=== PATIENT | female | born 1940 | race Caucasian/White ===

== ENCOUNTER 2020-04-07 12:33 | Outpatient (CLI) | payer MEDICARE, SELFPAY ==
--- NOTE | 2020-04-07 12:45 | USCV_ITS ---
Allison Lambert Age: 79 Gender: F : 1940 Exam Date: 04/07/2020 13:03 Ordering Phys: Philip Myers M.D ([email or web address]) Technologist: Catalina Osborne [place] [facility] [place]: ESSENTIAL HYPERTENSION BP: 105 / 75 HR: 90 Rhythm: Sinus Technical Quality: Adequate MEASUREMENTS (Male / Female) Normal Values 2D ECHO LV Diastolic Diameter PLAX 2.6 cm 4.2 - 5.9 / 3.9 - 5.3 cm LV Systolic Diameter PLAX 1.3 cm LV Chamber Size 2.5 cm IVS Diastolic Thickness 1.2 cm 0.6 - 1.0 / 0.6 - 0.9 cm IVS Systolic Thickness 1.3 cm LVPW Diastolic Thickness 2.3 cm 0.6 - 1.0 / 0.6 - 0.9 cm LVPW Systolic Thickness 1.8 cm RV Chamber Size 2.4 cm LVOT Diameter 2.0 cm LV Ejection Fraction 2D Teich 82.0 % LV Ejection Fraction MOD 2C 60.7 % LV Ejection Fraction 2C AL 62.3 % LA Diameter 2.7 cm LA Width 3.0 cm LA Height 3.3 cm RA Width 2.9 cm RA Height 4.3 cm Aorta at Sinotubular Diameter 2.7 cm M-MODE LV Diastolic Diameter MM 4.0 cm 4.2 - 5.9 / 3.9 - 5.3 cm LV Systolic Diameter MM 2.4 cm LV Ejection Fraction MM Teich 72.1 % IVS Diastolic Thickness MM 1.1 cm 0.6 - 1.0 / 0.6 - 0.9 cm IVS Systolic Thickness MM 1.2 cm LVPW Diastolic Thickness MM 0.9 cm 0.6 - 1.0 / 0.6 - 0.9 cm LVPW Systolic Thickness MM 1.1 cm Aortic Annulus Diameter 2.5 cm LA Ao Ratio MM 1.0 MV E Point Septal Separation 0.6 cm DOPPLER AV Peak Velocity 173.0 cm/s LVOT Peak Velocity 121.0 cm/s AV Area Cont Eq vti 1.8 cm squared AV Area Cont Eq pk 2.2 cm squared MV Area PHT 4.5 cm squared Mitral E to A Ratio 3.2 MV E' Velocity 55.5 cm/s Mitral E to MV E' Ratio 6.9 Mitral E to LV E' Lateral Ratio 7.1 Mitral E to LV E' Septal Ratio 6.6 TR Peak Velocity 271.5 cm/s TR Peak Gradient 29.5 mmHg TV Peak E Velocity 38.0 cm/s Right Atrial Pressure 3.0 mmHg Pulmonary Artery Systolic Pressu 32.5 mmHg PV Peak Velocity 52.0 cm/s RV Acceleration Time 0.1 s RV Ejection Time 0.3 s RV AcT/ET 0.4 FINDINGS Left Ventricle Normal left ventricular size. LV function is normal with EF of 60 to 65% and no regional wall motion abnormalities. Diastolic function is abnormal. Right Ventricle The right ventricle is normal in size and function. Right Atrium The right atrium is normal in size. Left Atrium The left atrium is normal in size. Mitral Valve Structurally normal mitral valve without significant stenosis or prolapse. There is no mitral regurgitation. Aortic Valve Not well-visualized. No significant aortic stenosis is seen. There is no aortic regurgitation. Tricuspid Valve Grossly normal without significant stenosis or regurgitation. Inadequate TR jet to calculate RVSP. Pulmonic Valve Not well-visualized. Pericardium Normal pericardium without effusion. Aorta Normal ascending aorta dimension. CONCLUSIONS LV systolic function is normal with EF of 60 to 65%. Diastolic function is abnormal. No significant valvular heart disease is seen. Compared to prior echocardiogram from 07/18/2014, no significant changes are seen. Philip Myers MD (Electronically Signed) Final Date: 16 April 2020 11:57 S
== END 2020-04-07 12:34 | disposition home or self-care (01) ==
PROVIDERS: PCP Family Medicine; Visit Provider Internal Medicine
DX: I10 Essential (primary) hypertension (principal)
CPT/HCPCS: 80048; 83880; 93306

== ENCOUNTER 2020-08-10 17:40 | Emergency (ER) | payer MEDICARE, SELFPAY ==
[2020-08-10 17:58] VITALS: BP 117/70; PULSE 85; RESP 16; TEMP 36.4; O2SAT 92; BMI 28.7
--- NOTE | 2020-08-10 18:06 | XRR_ITS ---
PROCEDURE INFORMATION: Exam: XR Left Wrist Exam date and time: 08/10/2020 6:21 PM Age: 80 years old Clinical indication: Injury or trauma; Fall; Blunt trauma (contusions or hematomas); Injury date: 08/10/2020; Injury details: PT fell today, deformation at wrist joint. PT states she had a crushing injury left wrist x50yrs. ; Prior surgery; Surgery date: 6+ months; Surgery type: Crushing injury left wirst x50yrs TECHNIQUE: Imaging protocol: XR Left wrist. Views: 3 or more views. Total images: 3 COMPARISON: No relevant prior studies available. FINDINGS: Bones/joints: Simple comminuted intra-articular impacted transverse fracture distal left radius. Minimally displaced dorsal intra-articular avulsion fracture without visible step-off. Approximately 42 degrees of volar angulation. Ulnar styloid avulsion fracture. Osteopenia/osteoporosis. Soft tissues: Soft tissue swelling. XR/XR wrist LT min 3V* [id number] IMPRESSION: Distal radius and ulna fractures as detailed in text.
--- NOTE | 2020-08-10 18:06 | XRR_ITS ---
PROCEDURE INFORMATION: Exam: XR Left Elbow Exam date and time: 08/10/2020 6:21 PM Age: 80 years old Clinical indication: Injury or trauma; Fall; Blunt trauma (contusions or hematomas); Elbow; Injury date: 08/10/2020; Injury details: PT fell today, deformation at wrist joint. PT states she had a crushing injury left wrist x50yrs. TECHNIQUE: Imaging protocol: XR Left elbow. Views: 3 or more views. Total images: 3 COMPARISON: No relevant prior studies available. FINDINGS: Bones/joints: No visible acute osseous abnormality, fracture, subluxation, or dislocation. No radiographically visible joint effusion. Osteopenia. Soft tissues: Soft tissues without evidence of edema, swelling, contusion, emphysema, or radiopaque foreign body. XR/XR elbow LT min 3V* [id number] IMPRESSION: Nonacute.
--- NOTE | 2020-08-10 18:06 | W.ED.FALL ---
HPI - Fall General: Chief Complaint: Fall Stated Complaint: FALL/LUE INJURY Time Seen by Provider: 08/10/20 18:04 Source: patient Mode of arrival: ambulatory Limitations: no limitations History of Present Illness: HPI Narrative: 80-year-old female who states that she opened a door to let her dogs out when she did she fell backwards. She states that she slapped her left wrist on the ground and believes she may have fractured her wrist. She has wrist pain she rates a 7 out of 10. She denies any head injury and denies headache or loss of consciousness. Denies any nausea or vomiting. She denies any neck pain. States she has some slight elbow pain. Patient is ambulatory and denies any lower extremity pain. MD complaint: fall Associated symptoms-after fall: Denies abdominal pain, chest pain or headache(s) Review of Systems Const: Denies: fever(s), chills, body aches or change in appetite Eyes: Denies: blurry vision or eye discomfort ENMT: Denies: throat pain or dental pain Card: Denies: chest pain Resp: Denies: dyspnea GI: Denies: abdominal pain, nausea, vomiting or diarrhea : Denies: dysuria Musc: Reports: extremity pain Skin/Breast: Denies: rash Neuro: Denies: headache(s) Psych: Denies: depression Manjinder/Lymph: Denies: easy bruising All/Imm: Denies: urticaria PFSH ED PFSH: Medical History Atrial fibrillation Chronic obstructive pulmonary disease Surgical History History of tubal ligation Family History Father Cancer Son Diabetes Social History Smoking and tobacco status: former smoker Quit status (tobacco): has quit using tobacco Year quit tobacco: 1988 - PD x 20 Years Second hand smoke exposure: Yes Smoking risk assessment/counseling performed?: No Alcohol intake: current Alcohol intake frequency: few times a week Alcohol type: wine Counseling given: No Counseling given: No Lives independently: No Household members: children Housing: Manufactured/Mobile home Marital status: Current occupational status: retired History of recent travel: No Current gender identity: Female Physical Exam Const: COMMON NORMALS: no acute distress, patient oriented x3 and healthy appearing HENMT: COMMON NORMALS: normocephalic and atraumatic HEAD & SCALP: normocephalic and atraumatic Eye: COMMON NORMALS: Equal, round and reactive pupils present and EOMs intact bilaterally PUPIL: Yes Equal, round and reactive pupils present Neck/C-Spine: COMMON NORMALS: full ROM and supple Chest: COMMONS NORMALS: normal inspection of the chest and normal palpation of entire chest wall Resp: COMMON NORMALS: normal respiratory effort, No retractions, No use of accessory muscles and clear to auscultation bilaterally AUSCULTATION: clear to auscultation bilaterally Cardio: COMMON NORMALS: regular rate, regular rhythm and No murmurs present (Cardio) RATE: regular rate RHYTHM: regular rhythm GI: COMMON NORMALS: Normal to inspection, nondistended, normoactive bowel sounds present, Soft to palpation, non-tender and no masses PALPATION: Yes Soft to palpation Extremity: COMMON NORMALS: full ROM NARRATIVE EXTREMITY EXAM: Tenderness to left wrist with obvious deformity distal pulses and sensation are intact. Neuro: COMMON NORMALS: patient oriented x3, moves all extremities and no focal motor deficits Psych: COMMON NORMALS: mental status grossly normal, Normal thought process present and cooperative THOUGHT PROCESS: Normal thought process present Skin: COMMON NORMALS: no rashes or lesions noted and no wounds GENERAL SKIN EXAM: no rashes or lesions noted Course Vital Signs: Vital signs: Vital Signs Temperature 97.6 F 08/10/20 17:58 Pulse Rate 85 08/10/20 17:58 Respiratory Rate 16 08/10/20 17:58 Blood Pressure 117/70 08/10/20 17:58 Pulse Oximetry 92 08/10/20 17:58 MDM - Fall MDM Narrative: Medical decision making narrative: Patient presents here with a wrist fracture from a fall. Patient placed in a sugar tong splint and has good distal sensation pulses after splint placement. Patient is to follow-up with orthopedics. She is return if worsening. She had no head or neck injury. Imaging Data^: xr left elbow: Attestation: I personally reviewed and interpreted this imaging study as follows: My impression: no acute abnormlaity xr l wrist: Attestation: I personally reviewed and interpreted this imaging study as follows: My impression: distal radius and styloid fx Discharge Plan Discharge Patient Disposition: Home Clinical Impression: Fracture of wrist Condition: Stable Prescriptions: New hydrocodone-acetaminophen 5-325 mg tablet 1 tab PO Q6H PRN (Reason: pain) Qty: 14 RF: 0 No Action dextromethorphan polistirex [Delsym 12 hour] 30 mg/5 mL suspension,extended rel 12 hr 10 ml PO Q12H RF: 0 ipratropium-albuterol 0.5 mg-3 mg(2.5 mg base)/3 mL solution for nebulization 3 ml INHALATION Q6H PRN (Reason: wheezing) Qty: 180 RF: 5 (DME) nebulizer supplies See Rx Instructions .Route .MEDSUPPLY Qty: 4 RF: 0 furosemide 20 mg tablet 20 mg PO BID Qty: 120 RF: 2 albuterol sulfate [Ventolin HFA] 90 mcg/actuation HFA aerosol inhaler 2 puff INHALATION QID PRN (Reason: shortness of breath or wheezing) Qty: 18 RF: 5 Stiolto Respimat 2.5-2.5 mcg/actuation mist See Rx Instructions .ROUTE .COMPLEX Qty: 4 RF: 3 metoprolol succinate 50 mg tablet extended release 24 hr 50 mg PO BID RF: 0 Equate Sleeping Medication 1 tab PO BEDTIME PRN (Reason: Sleep) RF: 0 Discharge Orders: Discharge ED (Routine); Ordered 08/10/20 Ordered By: Ashley Bonner Referrals: Zia Navarro DO [Physician] - 1-3 days Yuridia Holguin MD [Primary Care Provider] - Discharge Diet: Advance as tolerated Discharge Activity: Resume usual activity Patient Instructions: Wrist Fracture in Adults (ED), Opioid Safety Coding Level of Care Code ED Manager Camp for Chg Fwd Exam Comprehensive
[2020-08-10] MEDS: HYDROcodone-acetaminophen 5-325 mg Tablet 1 TAB PO (18:29)
[2020-08-10 19:10] VITALS: BP 139/61; PULSE 72; RESP 18; O2SAT 97
--- NOTE | 2020-08-11 09:15 | DCPLANNER ---
clinical applications manager had message to schedule a follow up appointment for patient with ortho for a wrist fracture. clinical applications manager called the ortho clinic, spoke with Evelyn, gave clinic patients information. clinical applications manager was told that patients information would be printed and reviewed. Clinic will call patient with appointment information.
--- NOTE | 2020-08-12 09:02 | DCPLANNER ---
Patient has a follow up appointment scheduled for , August 12, 2020 at 1:[address] Navarro. Clinic will call patient with appointment information.
--- NOTE | 2020-09-27 07:40 | DCPLANNER ---
Patient had a follow up appointment scheduled for 08.12.[address] Navraro at [facility] - patient did attend appointment.
== END 2020-08-10 19:15 | disposition home or self-care (01) ==
PROVIDERS: Emergency Provider Emergency Medicine; PCP Family Medicine
DX: S52.572A Other intraarticular fracture of lower end of left radius, initial encounter for closed fracture (principal); S52.612A Displaced fracture of left ulna styloid process, initial encounter for closed fracture; J44.9 Chronic obstructive pulmonary disease, unspecified; I48.91 Unspecified atrial fibrillation; Z87.891 Personal history of nicotine dependence; W19.XXXA Unspecified fall, initial encounter
CPT/HCPCS: 29125; 73080; 73110; 99283

== ENCOUNTER → 2020-08-12 13:59 | Outpatient (BNVA) | payer MEDICARE, SELFPAY | PROVIDERS: PCP Family Medicine; Visit Provider Orthopaedic Surgery | DX: S62.109A Fracture of unspecified carpal bone, unspecified wrist, initial encounter for closed fracture (principal); Z20.822 Contact with and (suspected) exposure to COVID-19; X58.XXXA Exposure to other specified factors, initial encounter | CPT/HCPCS: 87635 ==

== ENCOUNTER 2020-08-13 14:01 | Observation (INO) | payer MEDICARE, SELFPAY ==
[2020-08-12 17:49] VITALS: BMI 28.3
[2020-08-13] VITALS (13 sets, daily range): BP systolic 96–171; BP diastolic 65–119; PULSE 81–103; RESP 15–22; TEMP 36.4–37.1; O2SAT 93–100
--- NOTE | 2020-08-13 | SCC_ITS ---
Procedure Done: ORIF left distal radius extra articular 8.4 seconds of fluoroscopic guidance, for a cumulative dose of 0.15 mGy, was provided to Dr. Navarro by the radiology department. C-arm images of the left wrist were saved for the patient's permanent record. [facility]
--- NOTE | 2020-08-13 | XR_ITS ---
WS: [id number] Left wrist, C-arm fluoroscopy, 08/13/2020 Clinical Data: orif left wrist Comparison: Left wrist, 08/10/2020. Findings: There is a ventral plate applied to the distal left radius with multiple orthopedic screws reducing t he comminuted distal left radial fracture. The ulnar styloid fracture is seen. XR/XR wrist LT 2V [id number] Impression: Internal fixation of distal left radial fracture.
--- NOTE | 2020-08-13 09:16 | ECG_ITS ---
[facility] ED Test Date: 2020-08-13 Pat Name: Allison Lambert Department: Room: Gender: Female [employer]: : 1940 Requested By: Anuja Lee Order Number: [id number] Mark MD: Rachel Mota M.D. Measurements Intervals [place] Rate: 87 P: CT: QRS: 52 QRSD: 106 T: 53 QT: 363 QTc: 439 Interpretive Statements ATRIAL FIBRILLATION INCOMPLETE RIGHT BUNDLE BRANCH BLOCK [90+ ms QRS DURATION, TERMINAL R IN V1/V2, 40+ ms S IN I/aVL/V4/V5/V6] MODERATE ST DEPRESSION [0.05+ mV ST DEPRESSION] Compared to ECG 07/06/2017 22:13:47 Incomplete right bundle-branch block now present ST (T wave) deviation now present Electronically Signed On 08-16-2020 23:16:21 CDT by Rachel Mota M.D. [id number]
--- NOTE | 2020-08-13 09:32 | ANES.PREANE2 ---
Pre-Anesthetic Assessment Pre-Anesthetic Assessment: Height/Weight: Height 1.52 m Weight 65.771 kg Temp Pulse Resp BP Pulse Ox 98.1 F 103 H 18 140/82 94 08/13/20 09:17 08/13/20 09:17 08/13/20 09:17 08/13/20 09:17 08/13/20 09:17 Preop Diagnosis: left distal radius fracture Proposed Procedure: Operation Date: 08/13/20 11:10 Proposed Procedures p ORIF Wrist S62.109A [id number](Not Applicable) - Zia Navarro DO Familial anesthetic complications: none Was Beta Fay taken within 24 hours: Yes Was Clonidine taken within 24 hours: N/A Last intake: Intake Last Liquid Date 08/12/20 Last Liquid Time 23:00 Last Solid Date 08/12/20 Last Solid Time 23:00 Social: Social History: No alcohol and No tobacco Comment: former smoker Exam: Pre-Anes Outpt Exam: alert, oriented x 3, clear to auscultation bilaterally and regular rate & rhythm Airway: Cervical ROM: WNL MP: 2 Dentition: Other (no teeth) Pulmonary: Pulmonary: COPD (multiple exacerbations requiring antibiotics and prednisone) Comments: 2015 patient arrrived by ambulance w/ shortness of breath, became acutely difficult to ventilate (required high airway pressures) and she coded for a short period of time. Subsequent chest cxr revealed b/l pneumothroaces. Unclear if caused by CPR or if they occurred spontanesouly causing the code. After stabilzation cardiac work up was negative despite EKG changes and troponin rise. CV/HEM: CV/HEM: Afib and HTN Comments: Patient has poorly controlled a fib, seen by adali last in may. She refuses any anticoagulation. Her metoprolol has been increased twice since march. 05/23 echo normal, stress test in 2014 negative for ischemia Anesthetic Plan: ASA status: 4 Anesthesia: General and Regional (specify below) Other: will avoid postivie pressure ventilation Risk of > 500 ml blood loss (7ml/kg in children): No PFSH Anesthesia PFSH: Medical History Atrial fibrillation Chronic obstructive pulmonary disease Surgical History History of tubal ligation Family History Father Cancer Son Diabetes Social History Smoking and tobacco status: former smoker Quit status (tobacco): has quit using tobacco Year quit tobacco: 1988 - 1PPD x 20 Years Second hand smoke exposure: Yes Smoking risk assessment/counseling performed?: No Alcohol intake: current Alcohol intake frequency: few times a week Alcohol type: wine Counseling given: No Counseling given: No Lives independently: No Household members: children Housing: [employer]/Mobile home Marital status: Current occupational status: retired History of recent travel: No Current gender identity: Female Data Anesthesia Cardiac Studies: No Data to Display
--- NOTE | 2020-08-13 10:07 | W.PM.OPSUD ---
Surgery/Procedure H&P Update DATE OF PROCEDURE: August 13, 2020 DATE H&P PERFORMED: 08/12/20 H&P UPDATE INFORMATION: I have reviewed H&P completed within last 30 days, I have examined patient prior to procedure and No changes to prior documentation PREOP DIAGNOSIS: left distal radius fracture PLANNED PROCEDURE: Operation Date: 08/13/20 11:10 Proposed Procedures p ORIF Wrist [id number] [id number](Not Applicable) - Zia Navarro DO
[2020-08-13 10:38] LABS: Blood Urea Nitrogen 17 mg/dL (8-23); Calcium 8.7 mg/dL (8.5-10.5); Carbon Dioxide 25 mmol/L (22-29); Chloride 100 mmol/L (98-107); Glucose 108 mg/dL (65-115); Osmolality Calculated 282 mOsm/kg (285-295); Sodium 135 mmol/L (136-145)
[2020-08-13 10:39] LABS: Anion Gap 13.2 (5-19); Potassium 3.2 mmol/L (3.5-5.1)
--- NOTE | 2020-08-13 11:37 | P.OP_ITS ---
Operative Report Date of procedure: August 13, 2020 Pre-op Diagnosis: left distal radius fracture Post-op diagnosis: same Procedure Done: ORIF left distal radius extra articular Anesthesia: General Condition: stable Disposition: PACU Procedure: Patient was brought to the operative suite placed in the supine position all areas impingement well-padded. Patient was prepped and draped normal sterile fashion. Skin incision made over the volar wrist. The FCR and radial artery were identified. Pronator quadratus was reflected ulnarly. Fracture was reduced. A [employer] distal radius plate was placed. Three screws were placed distally and two screws placed proximally. AP and lateral fluoroscopy ensured the fracture and hardware in appropriate positions. Wounds were irrigated closed with Vicryl and Monocryl suture sterile dressings were applied patient was placed in a volar splint and transferred to the PACU in stable condition.
--- NOTE | 2020-08-13 11:59 | SUR.PHASEI ---
1154: patient into pacu with simple mask in place. patient rousable, per faces pain at 0/10. fingers of left hand warm, pink. dressing in place and sling in place.
[2020-08-13] MEDS: fentaNYL 50 mcg/mL INJ 2mL IVP (12:05)
[2020-08-13] MEDS: HYDROcodone-acetaminophen 5-325 mg Tablet 1 TAB PO (13:05)
--- NOTE | 2020-08-13 13:36 | SUR.PHASEII ---
patient given hydrocodone at 1300 per orders. 1330: lunch tray taken in to patient. she says she does not want it. she is angry and wants to know why she isn't given anything for pain. I reminded her that she got the pain pill. she says she wants something through the IV. I told her she had pain medication through her IV in pacu. she wants something else for her IV. She says she doesn't feel like she can go home and take care of herself because she would be there by herself. I told her I would call the surgeon to ask about getting a room for overnight. I asked her if she was going to stay over night if she wanted the nerve block that she refused in pre-op. She very angrily yelled that she did not want a nerve block and that she wanted IV pain meds. Called for order to admit for obs to the floor, he said yes. Transfer process started.
[2020-08-13] MEDS: ketorolac 30 mg/mL INJ 15 MG IVP (13:49)
[2020-08-13] MEDS: acetaminophen 1,000 MG/100 ML PIGGYBACK 400 MG IV (13:49)
--- NOTE | 2020-08-13 14:50 | PC.NURSE ---
Report given to Mary Ann on @ 3116. Pt transported to room 275 with Krissy Godoy RN assisting. Pt awake, alert and orientated and advised her pain was relieved after receiving ofirmev and 15 mg toradol just prior to transport. Receiving nurse present , Pt was assisted from ops stretcher to room bed without incident.
--- NOTE | 2020-08-16 17:50 | PC.RESP ---
Pulmonary Rehab information sent to patient.
== END 2020-08-13 17:51 | disposition home or self-care (01) ==
LOC: MEDSURG 14:02
PROVIDERS: Admitting Provider Orthopaedic Surgery; PCP Family Medicine; Visit Provider Orthopaedic Surgery
PROC: (CPT 25607; principal; 2020-08-13 10:50)
DX: S52.552A Other extraarticular fracture of lower end of left radius, initial encounter for closed fracture (principal); W19.XXXA Unspecified fall, initial encounter; Z87.891 Personal history of nicotine dependence; J44.9 Chronic obstructive pulmonary disease, unspecified; I48.91 Unspecified atrial fibrillation; I10 Essential (primary) hypertension
CPT/HCPCS: 25607; 36415; 73100; 76000; 80048; 93005; C1713; G0378; J0690; J1100; J1885; J2250; J2370; J2405; J2704; J2710; J2795; J3010; J3490

== ENCOUNTER 2020-08-26 13:43 | Outpatient (CLI) | payer MEDICARE, SELFPAY | END 2020-08-26 13:44 | disposition home or self-care (01) | LOC: SPT 13:44 | PROVIDERS: PCP Family Medicine; Visit Provider Orthopaedic Surgery | DX: Z46.89 Encounter for fitting and adjustment of other specified devices (principal); S52.592D Other fractures of lower end of left radius, subsequent encounter for closed fracture with routine healing; X58.XXXD Exposure to other specified factors, subsequent encounter | CPT/HCPCS: 97760; L3982 ==

== ENCOUNTER → 2020-09-28 11:10 | Outpatient (BNVA) | payer MEDICARE, SELFPAY | PROVIDERS: PCP Family Medicine; Visit Provider Orthopaedic Surgery | DX: Z47.89 Encounter for other orthopedic aftercare (principal); S52.509D Unspecified fracture of the lower end of unspecified radius, subsequent encounter for closed fracture with routine healing; X58.XXXD Exposure to other specified factors, subsequent encounter | CPT/HCPCS: 73110 ==

== ENCOUNTER → 2020-11-09 12:55 | Outpatient (BNVA) | payer MEDICARE, SELFPAY | PROVIDERS: PCP Family Medicine; Visit Provider Orthopaedic Surgery | DX: Z47.89 Encounter for other orthopedic aftercare (principal); S62.102D Fracture of unspecified carpal bone, left wrist, subsequent encounter for fracture with routine healing; X58.XXXD Exposure to other specified factors, subsequent encounter | CPT/HCPCS: 73110 ==

== ENCOUNTER → 2021-05-26 11:20 | Outpatient (BNVA) | payer MEDICARE, SELFPAY | PROVIDERS: PCP Family Medicine; Visit Provider Internal Medicine Critical Care Medicine | DX: J44.9 Chronic obstructive pulmonary disease, unspecified (principal); I48.91 Unspecified atrial fibrillation; Z87.891 Personal history of nicotine dependence; I10 Essential (primary) hypertension; I48.20 Chronic atrial fibrillation, unspecified | CPT/HCPCS: 99213 ==

== ENCOUNTER → 2021-11-24 08:56 | Outpatient (BNVA) | payer MEDICARE, SELFPAY | PROVIDERS: PCP Family Medicine; Visit Provider Internal Medicine Critical Care Medicine | DX: J44.9 Chronic obstructive pulmonary disease, unspecified (principal); I48.91 Unspecified atrial fibrillation | CPT/HCPCS: 99213 ==

== ENCOUNTER 2022-04-09 11:01 | Emergency (ER) | payer MEDICARE, SELFPAY ==
[2022-04-09 11:10] VITALS: BP 115/77; PULSE 69; RESP 16; TEMP 36.1; O2SAT 95; BMI 25.4
--- NOTE | 2022-04-09 11:31 | XRR_ITS ---
PROCEDURE INFORMATION: Exam: XR Right Wrist Exam date and time: 04/09/2022 11:43 AM Age: 81 years old Clinical indication: Injury or trauma; Fall; Blunt trauma (contusions or hematomas); Wrist; Right; Additional info: Wrist pain, swelling bruising after fall TECHNIQUE: Imaging protocol: Radiologic exam of the Right wrist. Views: 3 or more views. COMPARISON: No relevant prior studies available. FINDINGS: Bones/joints: There is a mildly displaced and slightly impacted intra-articular comminuted fracture of the distal radius, with mild volar angulation. Old appearing fracture deformity of the ulnar styloid process seen. No dislocation. Swelling of the soft tissues around the wrist is present. Soft tissues: See Bones/joints finding. XR/XR wrist RT min 3V* [id number] IMPRESSION: Mildly displaced comminuted fracture of the distal radius with mild volar angulation.
--- NOTE | 2022-04-09 11:38 | ED_ITS ---
HPI - Extremity Problem General: Chief complaint: Extremity Injury, Upper Stated complaint: fall, right arm injury Time Seen by Provider: 04/09/22 11:20 Source: patient Mode of arrival: ambulatory Limitations: no limitations History of Present Illness: 81-year-old female presents to the ER today after falling on the ice . Patient reports right wrist pain and swelling and also bruising up to the elbow. She reports she wore a sling for the first couple of days and is started to feel better so she took the sling off. She still has trouble with bending and rotating the wrist. She reports there is still significant pain when using that wrist or hand. Patient denies any prior injury. Review of Systems General: Reports: 10 or more systems reviewed and unremarkable except in HPI and below PFSH ED PFSH: Medical History Atrial fibrillation Chronic obstructive pulmonary disease Surgical History History of tubal ligation Family History Father Cancer Son Diabetes Social History Smoking and tobacco status: former smoker Quit status (tobacco): has quit using tobacco Year quit tobacco: 1988 - 1PPD x 20 Years Former quit date comment: started at age 23 Second hand smoke exposure: Yes Smoking risk assessment/counseling performed?: No Alcohol intake: current Alcohol intake frequency: few times a week Alcohol type: wine Counseling given: No Counseling given: No Lives independently: No Household members: children Housing: Manufactured/Mobile home Marital status: Current occupational status: retired History of recent travel: No Current gender identity: Female Physical Exam Const: COMMON NORMALS: no acute distress, average body habitus, patient oriented x3, no limitations, alert and well nourished Resp: COMMON NORMALS: normal respiratory effort EFFORT & INSPECTION: Yes able to speak in complete sentences Cardio: COMMON NORMALS: regular rate and regular rhythm RATE: regular rate RHYTHM: regular rhythm Extremity: NARRATIVE EXTREMITY EXAM: Patient is noted to have moderate swelling of the right wrist in addition to bruising. Bruising goes from the fingertips all the way to the elbow. Patient has decreased range of motion of the wrist and pain with flexion, extension, supination, and pronation. Neuro: COMMON NORMALS: patient oriented x3 SENSORIUM/ORIENTATION: Yes alert Psych: COMMON NORMALS: cooperative Skin: NARRATIVE SKIN EXAM: Significant bruising noted from the fingertips of the right hand all the way up to the elbow. Pulses normal bilaterally. Course ED course: Patient is known to have swelling and significant bruising of the right wrist. We will go ahead and get an x-ray at this time. Patient did fall on the ice on and has been wearing a sling since then. Vital Signs: Vital signs: Vital Signs Temperature 97.0 F L 04/09/22 11:10 Pulse Rate 69 04/09/22 11:10 Respiratory Rate 16 04/09/22 11:10 Blood Pressure 115/77 04/09/22 11:10 Pulse Oximetry 95 04/09/22 11:10 Oxygen Delivery Me thod 04/09/22 11:10 MDM - Extremity (Nontraumatic) Medical Decision Making X-ray indicates mildly displaced comminuted fracture of the distal radius with some mild angulation. We will place patient in a splint at this time. I recommend she follow-up with Ortho this week. A care management referral was placed. Patient will be given ketorolac for inflammation and pain. I advised her to not take aspirin with this. Rest, ice and elevation recommended to reduce swelling. Return to the ER with new or worsening symptoms. Splint care was discussed. Patient verbalized understanding and was in agreement with the treatment plan. Lab Data Radiology Impressions Wrist X-Ray 04/09/22 11:31 IMPRESSION: Mildly displaced comminuted fracture of the distal radius with mild volar angulation. Critical Care Time Critical Care Time: Critical Care Time: No Discharge Plan Discharge Patient Disposition: Home Clinical Impression: Closed fracture distal radius and ulna Qualifiers: Encounter type: initial encounter Laterality: right Qualified Code(s): S52.501A - Unspecified fracture of the lower end of right radius, initial encounter for closed fracture Condition: Stable Prescriptions: New ketorolac 10 mg tablet 10 mg PO Q8H PRN (Reason: pain) 4 Days Qty: 12 0RF No Action dextromethorphan polistirex [Delsym 12 hour] 30 mg/5 mL suspension,extended rel 12 hr 10 ml PO Q12H metoprolol succinate 50 mg tablet extended release 24 hr 50 mg PO BID Qty: 180 3RF Stiolto Respimat 2.5-2.5 mcg/actuation mist 2 inh inhalation Q24H 30 Days Qty: 12 6RF aspirin 325 mg tablet 325 mg PO DAILY (DME) Fast Form Cock Up Splint See Rx Instructions .ROUTE .MEDSUPPLY Qty: 1 0RF Rx Instructions: As directed albuterol sulfate 2.5 mg /3 mL (0.083 %) solution for nebulization 2.5 mg inhalation Q6H PRN (Reason: shortness of breath or wheezing) 30 Days Qty: 360 2RF furosemide [Lasix] 20 mg tablet 20 mg PO BID Qty: 240 0RF albuterol sulfate 90 mcg/actuation HFA aerosol inhaler 2 inh inhalation Q6H PRN (Reason: shortness of breath or wheezing) Qty: 18 3RF Equate Sleeping Medication 1 tab PO BEDTIME PRN (Reason: Sleep) Discharge Orders: Discharge ED (Routine); Ordered 04/09/22 Ordered By: Violeta Gannon Discharge Diet: Usual diet Discharge Activity: Limit activity as instructed Patient Instructions: Opioid Safety, Pain Management Activity Restrictions/Additional Instructions: Keep splint clean and dry. Take ketorolac for swelling and pain. Apply ice and keep arm elevated to reduce swelling. Follow-up with orthopedics this week as discussed. Return to the ER with new or worsening symptoms. Coding Level of Care Code ED [employer] for [facility] Exam Expanded Problem Focused
[2022-04-09 13:37] VITALS: BP 119/79; PULSE 73; RESP 15; TEMP 36.4; O2SAT 94
--- NOTE | 2022-04-10 10:43 | DCPLANNER ---
Addendum entered by Mony Mendez 04/14/22 13:07: Patient had a follow up appointment scheduled for 04.13.22 with ortho - patient did attend appointment. Original Note: practice manager had message to schedule a follow up appointment for patient with ortho. practice manager sent patients information to the front office staff at ortho. Patients information will be printed and reviewed. Clinic will call patient with appointment information.
== END 2022-04-09 13:35 | disposition home or self-care (01) ==
PROVIDERS: Emergency Provider Physician Assistant
DX: S52.591A Other fractures of lower end of right radius, initial encounter for closed fracture (principal); Z79.82 Long term (current) use of aspirin; J44.9 Chronic obstructive pulmonary disease, unspecified; Z87.891 Personal history of nicotine dependence; W00.0XXA Fall on same level due to ice and snow, initial encounter
CPT/HCPCS: 73110; 99283

== ENCOUNTER 2022-04-13 11:27 | Outpatient (CLI) | payer MEDICARE, SELFPAY | END 2022-04-13 11:28 | disposition home or self-care (01) | LOC: SPT 11:28 | PROVIDERS: Visit Provider Student in an Organized Health Care Education/Training Program | DX: Z46.89 Encounter for fitting and adjustment of other specified devices (principal); S52.591A Other fractures of lower end of right radius, initial encounter for closed fracture; S52.691A Other fracture of lower end of right ulna, initial encounter for closed fracture; W00.0XXA Fall on same level due to ice and snow, initial encounter | CPT/HCPCS: 25600; 97760; 99204; L3982 ==

== ENCOUNTER → 2022-05-25 08:51 | Outpatient (BNVA) | payer MEDICARE, SELFPAY | PROVIDERS: Visit Provider Internal Medicine Pulmonary Disease | DX: J44.9 Chronic obstructive pulmonary disease, unspecified (principal); I48.91 Unspecified atrial fibrillation; Z87.891 Personal history of nicotine dependence; S52.501D Unspecified fracture of the lower end of right radius, subsequent encounter for closed fracture with routine healing; S52.601D Unspecified fracture of lower end of right ulna, subsequent encounter for closed fracture with routine healing; W00.0XXD Fall on same level due to ice and snow, subsequent encounter | CPT/HCPCS: 73110; 99213; 99214 ==

== ENCOUNTER 2022-05-25 14:59 | Outpatient (CLI) | payer MEDICARE, SELFPAY | END 2022-05-25 15:00 | disposition home or self-care (01) | LOC: SPT 15:00 | PROVIDERS: Visit Provider Student in an Organized Health Care Education/Training Program | DX: Z46.89 Encounter for fitting and adjustment of other specified devices (principal); S52.591D Other fractures of lower end of right radius, subsequent encounter for closed fracture with routine healing; X58.XXXD Exposure to other specified factors, subsequent encounter | CPT/HCPCS: 97760; L3908 ==

== ENCOUNTER → 2022-07-12 15:25 | Outpatient (BNVA) | payer MEDICARE, SELFPAY | PROVIDERS: Visit Provider Internal Medicine | DX: I48.91 Unspecified atrial fibrillation (principal); I10 Essential (primary) hypertension; J44.9 Chronic obstructive pulmonary disease, unspecified; Z87.891 Personal history of nicotine dependence | CPT/HCPCS: 99214 ==

== ENCOUNTER → 2022-11-27 10:40 | Outpatient (BNVA) | payer MEDICARE, SELFPAY | PROVIDERS: Visit Provider Internal Medicine Pulmonary Disease | DX: R06.02 Shortness of breath (principal); J45.909 Unspecified asthma, uncomplicated; Z79.899 Other long term (current) drug therapy; J44.9 Chronic obstructive pulmonary disease, unspecified; I48.91 Unspecified atrial fibrillation; Z87.891 Personal history of nicotine dependence | CPT/HCPCS: 36415; 82785; 85025; 86003; 99214 ==

== ENCOUNTER → 2023-01-10 15:29 | Outpatient (BNVA) | payer MEDICARE, SELFPAY | PROVIDERS: Visit Provider Internal Medicine | DX: I48.91 Unspecified atrial fibrillation (principal); I10 Essential (primary) hypertension; J44.9 Chronic obstructive pulmonary disease, unspecified; Z87.891 Personal history of nicotine dependence | CPT/HCPCS: 99214 ==

== ENCOUNTER 2023-04-14 15:03 | Emergency (ER) | payer MEDICARE, SELFPAY ==
[2023-04-14 15:10] VITALS: BP 144/92; PULSE 99; RESP 16; TEMP 37.1; O2SAT 98
--- NOTE | 2023-04-14 15:21 | XRR_ITS ---
PROCEDURE INFORMATION: Exam: XR Abdomen Exam date and time: 04/14/2023 3:22 PM Age: 82 years old Clinical indication: Abdominal pain; Additional info: Abd pain, obstipation TECHNIQUE: Imaging protocol: Radiologic exam of the abdomen. Views: Frontal supine view of the abdomen. 1 View. COMPARISON: CR XR chest 1V [id number] 06/18/2018 11:30 AM FINDINGS: Nonobstructive bowel gas pattern with moderate volume colonic stool/constipation. XR/XR KUB portable [id number] IMPRESSION: As above.
--- NOTE | 2023-04-14 15:21 | W.ED.ABDPA2 ---
Documented by User: Raghu Johnson DO 04/16/23 06:29 HPI - Abdominal Pain General: Chief Complaint: Abdominal Pain Stated Complaint: can't go to the bathroom Time Seen by Provider: 04/14/23 15:05 Source: patient Mode of arrival: ambulatory History of Present Illness: 82-year-old female presents emergency room with complaint of difficulty with bowel movements she has been constipated last several days got to the point now where she states you are drinking she gets nauseous and has at times throwing up. She denies any hematochezia melena hematemesis or coffee-ground emesis no dysuria urgency or frequency. MD elicited complaint: abdominal pain Pertinent past history: constipation Onset (ago): day(s) Pain Consistency: intermittent Location: Diffuse Quality: cramping Exacerbating factors: nothing Relieving factors: nothing Associated Symptoms: Denies chills, dysuria and fever(s) Review of Systems Const: Denies: fever(s) or chills Card: Denies: chest pain Resp: Denies: dyspnea GI: Denies: abdominal pain : Denies: dysuria, urinary frequency or urinary urgency Musc: Denies: neck pain or back pain Skin/Breast: Denies: rash PFSH ED PFSH: Medical History Closed fracture of right distal radius and ulna Atrial fibrillation Chronic obstructive pulmonary disease Surgical History History of tubal ligation Family History Father Cancer Son Diabetes Social History Smoking and tobacco/nicotine status: former use of tobacco/nicotine Quit status (tobacco/nicotine): has quit using Year quit tobacco: 1988 - 1PPD x 20 Years Former quit date comment: started at age 23 Second hand smoke exposure: Yes Alcohol intake: current Alcohol intake frequency: few times a week Alcohol type: wine Substance/Drug Use: never Lives independently: No Household members: children Housing: Manufactured/Mobile home Marital status: Current occupational status: retired Do you think of yourself as: Straight/Heterosexual Current gender identity: Female Physical Exam Const: GENERAL APPEARANCE: comfortable; not cooperative ORIENTATION/CONSCIOUSNESS: Yes awake, Yes oriented to person, Yes oriented to place and Yes oriented to time HENMT: COMMON NORMALS: normocephalic, atraumatic and hearing grossly normal bilaterally HEAD & SCALP: normocephalic and atraumatic Resp: COMMON NORMALS: normal respiratory effort, No retractions, No use of accessory muscles and clear to auscultation bilaterally AUSCULTATION: clear to auscultation bilaterally Cardio: COMMON NORMALS: regular rate, regular rhythm and No murmurs present (Cardio) RATE: regular rate RHYTHM: regular rhythm GI: COMMON NORMALS: Soft to palpation and No hepatosplenomegaly present AUSCULTATION: Yes normoactive bowel sounds PALPATION: Yes Soft to palpation, No Tenderness to palpation present (GI), No Guarding due to palpation present (GI) and Yes No hepatosplenomegaly present Extremity: COMMON NORMALS: normal to inspection, capillary refill normal, no clubbing, cyanosis or edema, no calf tenderness and no pedal edema Neuro: SENSORIUM/ORIENTATION: Yes oriented to person, Yes oriented to place and Yes oriented to time Skin: COMMON NORMALS: no rashes or lesions noted GENERAL SKIN EXAM: no rashes or lesions noted Course Vital Signs: Vital signs: Vital Signs Temperature 98.7 F 04/14/23 15:10 Pulse Rate 99 04/14/23 15:10 Respiratory Rate 16 04/14/23 15:10 Blood Pressure 144/92 04/14/23 15:10 Pulse Oximetry 98 04/14/23 15:10 MDM - Abdominal Pain Medical Decision Making Initial KUB shows moderate constipation on exam patient did not have an acute abdomen and bowel sounds are positive enema was ordered. Patient became quite frustrated and angry with the process. On several occasions patient was yelling and cursing at the nursing staff. Went to the room and tried to redirect the patient and de-escalate situation. She continues to be quite verbally abusive to the staff. When asked patient to refrain from yelling and berating the staff and swearing at the staff. Advised her that we were more than happy to help relieve the situation and treat her but asked that she cooperate with us. Recommended a second attempt with enema also ordered lab work and a CT of the abdomen and pelvis. Care turned over to Dr. Singleton at change of shift. 82-year-old lady checked out at shift change by Dr. Toscano to me. At the time, she had a laboratory and CT pending after an attempt at evacuation of constipation with an enema. She became belligerent, and had been shouting at the nursing staff. Shortly following this, she dressed herself, and wanted to leave. She was allowed to leave AGAINST MEDICAL ADVICE from the emergency department. Lab Data Labs/Radiology: Radiology Impressions KUB X-Ray 04/14/23 15:21 IMPRESSION: As above. Discharge Plan Discharge Patient Disposition: Left Against Medical Advice Clinical Impression: Constipation Condition: Stable Prescriptions: No Action dextromethorphan polistirex [Delsym 12 hour] 30 mg/5 mL suspension,extended rel 12 hr 10 ml PO Q12H aspirin 325 mg tablet 325 mg PO DAILY (DME) Fast Form Cock Up Splint See Rx Instructions .ROUTE .MEDSUPPLY Qty: 1 0RF Rx Instructions: As directed (DME) cock up splint See Rx Instructions .ROUTE .MEDSUPPLY Qty: 1 0RF Rx Instructions: As directed albuterol sulfate 90 mcg/actuation HFA aerosol inhaler 2 inh inhalation Q6H PRN (Reason: shortness of breath or wheezing) Qty: 18 3RF Breztri Aerosphere 160-9-4.8 mcg/actuation HFA aerosol inhaler 2 inh inhalation BID Qty: 10.7 3RF furosemide [Lasix] 20 mg tablet 20 mg PO BID Qty: 180 3RF metoprolol succinate 50 mg tablet extended release 24 hr 50 mg PO DAILY Qty: 90 3RF albuterol sulfate 2.5 mg /3 mL (0.083 %) solution for nebulization 2.5 mg inhalation Q6H PRN (Reason: shortness of breath or wheezing) 30 Days Qty: 360 6RF Equate Sleeping Medication 1 tab PO BEDTIME PRN (Reason: Sleep) Discharge Diet: Usual diet Discharge Activity: Increase activity as tolerated Patient Instructions: Constipation (ED) Activity Restrictions/Additional Instructions: Thank you for choosing [facility] for your healthcare needs today. Please realize this is an emergency room and that we are providing you with a medical screening exam and this may not be complete and all inclusive of all the testing and or work up that you may need to determine your ailment or severity of your illness. It is very important that you follow up as instructed or that you return to the Emergency Department should you have concerns or if your condition changes or worsens in any way. 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[place] [employer] Documented by User: Donnie Singleton DO 04/14/23 19:16 HPI - Abdominal Pain General: Chief Complaint: Abdominal Pain Stated Complaint: can't go to the bathroom Time Seen by Provider: 04/14/23 15:05 PFSH ED PFSH: Medical History Closed fracture of right distal radius and ulna Atrial fibrillation Chronic obstructive pulmonary disease Surgical History History of tubal ligation Family History Father Cancer Son Diabetes Social History Smoking and tobacco/nicotine status: former use of tobacco/nicotine Quit status (tobacco/nicotine): has quit using Year quit tobacco: 1988 - 1PPD x 20 Years Former quit date comment: started at age 23 Second hand smoke exposure: Yes Alcohol intake: current Alcohol intake frequency: few times a week Alcohol type: wine Substance/Drug Use: never Lives independently: No Household members: children Housing: Manufactured/Mobile home Marital status: Current occupational status: retired Do you think of yourself as: Straight/Heterosexual Current gender identity: Female Course Vital Signs: Vital signs: Vital Signs Temperature 98.7 F 04/14/23 15:10 Pulse Rate 99 04/14/23 15:10 Respiratory Rate 16 04/14/23 15:10 Blood Pressure 144/92 04/14/23 15:10 Pulse Oximetry 98 04/14/23 15:10 MDM - Abdominal Pain Medical Decision Making 82-year-old lady checked out at shift change by Dr. Toscano to me. At the time, she had a laboratory and CT pending after an attempt at evacuation of constipation with an enema. She became belligerent, and had been shouting at the nursing staff. Shortly following this, she dressed herself, and wanted to leave. She was allowed to leave AGAINST MEDICAL ADVICE from the emergency department. Lab Data Labs/Radiology: Radiology Impressions KUB X-Ray 04/14/23 15:21 IMPRESSION: As above. All radiology interpretation(s) finalized by discharge Discharge Plan Discharge Patient Disposition: Left Against Medical Advice Clinical Impression: Constipation Condition: Stable Prescriptions: No Action dextromethorphan polistirex [Delsym 12 hour] 30 mg/5 mL suspension,extended rel 12 hr 10 ml PO Q12H aspirin 325 mg tablet 325 mg PO DAILY (DME) Fast Form Cock Up Splint See Rx Instructions .ROUTE .MEDSUPPLY Qty: 1 0RF Rx Instructions: As directed (DME) cock up splint See Rx Instructions .ROUTE .MEDSUPPLY Qty: 1 0RF Rx Instructions: As directed albuterol sulfate 90 mcg/actuation HFA aerosol inhaler 2 inh inhalation Q6H PRN (Reason: shortness of breath or wheezing) Qty: 18 3RF Breztri Aerosphere 160-9-4.8 mcg/actuation HFA aerosol inhaler 2 inh inhalation BID Qty: 10.7 3RF furosemide [Lasix] 20 mg tablet 20 mg PO BID Qty: 180 3RF metoprolol succinate 50 mg tablet extended release 24 hr 50 mg PO DAILY Qty: 90 3RF albuterol sulfate 2.5 mg /3 mL (0.083 %) solution for nebulization 2.5 mg inhalation Q6H PRN (Reason: shortness of breath or wheezing) 30 Days Qty: 360 6RF Equate Sleeping Medication 1 tab PO BEDTIME PRN (Reason: Sleep) Discharge Diet: Usual diet Discharge Activity: Increase activity as tolerated Patient Instructions: Constipation (ED) Activity Restrictions/Additional Instructions: Thank you for choosing [facility] for your healthcare needs today. Please realize this is an emergency room and that we are providing you with a medical screening exam and this may not be complete and all inclusive of all the testing and or work up that you may need to determine your ailment or severity of your illness. It is very important that you follow up as instructed or that you return to the Emergency Department should you have concerns or if your condition changes or worsens in any way. 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[facility]ra
== END 2023-04-14 18:15 | disposition left against medical advice (07) ==
PROVIDERS: Emergency Provider Family Medicine
DX: K59.00 Constipation, unspecified (principal); Z53.29 Procedure and treatment not carried out because of patient's decision for other reasons; Z79.82 Long term (current) use of aspirin; Z87.891 Personal history of nicotine dependence; J44.9 Chronic obstructive pulmonary disease, unspecified
CPT/HCPCS: 74018; 99283

== ENCOUNTER 2023-05-09 12:45 | Outpatient (CLI) | payer MEDICARE, SELFPAY ==
[2023-05-09 13:13] VITALS: PULSE 117; RESP 18; O2SAT 94
[2023-05-09] MEDS: albuterol 2.5 mg/3 mL Neb INHALATION (13:13)
[2023-05-09 13:17] VITALS: PULSE 115
== END 2023-05-09 12:46 | disposition home or self-care (01) ==
LOC: RT 12:46
PROVIDERS: Visit Provider Internal Medicine Pulmonary Disease
DX: R06.02 Shortness of breath (principal)
CPT/HCPCS: 94060; 94618; 94726; 94729; J7613

== ENCOUNTER → 2023-05-18 11:25 | Outpatient (BNVA) | payer MEDICARE, SELFPAY | PROVIDERS: Visit Provider Internal Medicine Pulmonary Disease | DX: J44.89 Other specified chronic obstructive pulmonary disease (principal); I48.91 Unspecified atrial fibrillation; Z87.891 Personal history of nicotine dependence | CPT/HCPCS: 99214 ==

== ENCOUNTER → 2023-11-01 14:17 | Outpatient (BNVA) | payer OTHER, SELFPAY | PROVIDERS: PCP Nurse Practitioner Family; Visit Provider Nurse Practitioner Family | DX: R30.0 Dysuria (principal) | CPT/HCPCS: 81000 ==

== ENCOUNTER → 2024-07-23 14:13 | Outpatient (BNVA) | payer OTHER, SELFPAY | PROVIDERS: PCP Family Medicine; Visit Provider Family Medicine | DX: I10 Essential (primary) hypertension (principal) | CPT/HCPCS: 80053; 80061; 82306; 82607; 84439; 84443; 85025 ==

== ENCOUNTER → 2024-08-14 15:42 | Outpatient (BNVA) | payer OTHER, SELFPAY | PROVIDERS: PCP Family Medicine; Visit Provider Family Medicine | DX: R39.9 Unspecified symptoms and signs involving the genitourinary system (principal) | CPT/HCPCS: 81000 ==